=== PATIENT | male | born 1955 | race Hispanic/Latino ===

== ENCOUNTER → 2021-10-11 11:44 | Outpatient (CLI) | payer OTHER, MEDICAID, SELFPAY ==
--- NOTE | 2021-10-11 11:48 | DI.RAD.S_ITS ---
PROCEDURE: XR WRIST RT MIN 3V INDICATIONS: bilateral wrist pain TECHNIQUE: 3 views of the wrist were acquired. COMPARISON: None. FINDINGS: Bones: No acute fractures or dislocations. No suspicious bony lesions. Mild degenerative changes at the 1st carpometacarpal joint and triscaphe joint. Soft tissues: No suspicious soft tissue calcifications. IMPRESSION: No acute osseous abnormality. Mild osteoarthrosis. If the symptoms persist, consider cross sectional imaging such as MRI or CT for further assessment. Dictated by: Dontrell Varner M.D. on 10/11/2021 at 14:03 Approved by: Dontrell Varner M.D. on 10/11/2021 at 14:04
--- NOTE | 2021-10-11 11:48 | DI.RAD.S_ITS ---
PROCEDURE: XR WRIST LT MIN 3V INDICATIONS: bilateral wrist pain TECHNIQUE: 3 views of the wrist were acquired. COMPARISON: None. FINDINGS: Bones: No acute fractures or dislocations. No suspicious bony lesions. Minimal degenerative changes of the 1st carpometacarpal joint. Soft tissues: No suspicious soft tissue calcifications. IMPRESSION: No acute osseous abnormality. If the symptoms persist, consider cross sectional imaging such as MRI or CT for further assessment. Dictated by: Dontrell Varner M.D. on 10/11/2021 at 14:05 Approved by: Dontrell Varner M.D. on 10/11/2021 at 14:05
[2021-10-11 12:22] LABS: Add Manual Diff / Slide Review NO; Basophils Absolute Auto 0 /uL (0-100); Basophils Percent Auto 0.5 % (0-2); Eosinophils Absolute Auto 300 /uL (0-450); Eosinophils Percent Auto 3.2 % (2-4); Hematocrit 37.9 % (41-53); Hemoglobin 12.1 g/dL (13.5-17.5); Lymphocytes Absolute Auto 2400 /uL (1100-4500); Lymphocytes Percent Auto 26.1 % (25-40); Mean Corpuscular Volume 74.9 fL (80-100); Monocytes Absolute Auto 900 /uL (0-900); Monocytes Percent Auto 10.2 % (3-14); Neutrophils Absolute Auto 5500 /uL (1500-7000); Platelet Count 304 X10^3/uL (150-400); Red Blood Cell Count 5.05 X10^6/uL (4.5-5.9); Red Cell Distribution Width 16.6 % (11.6-14.8); White Blood Cell Count 9.1 X10^3/uL (4.5-11.0)
[2021-10-11 12:51] LABS: Alanine Aminotransferase 68 IU/L (<50); Albumin 4.5 g/dL (3.5-5.0); Albumin Globulin Ratio 1.1 (1.0-2.8); Alkaline Phosphatase 90 U/L (38-126); Aspartate Aminotransferase 56 IU/L (17-59); BUN Creatinine Ratio 14.3 (6-22); Bilirubin Total 0.4 mg/dL (0.2-1.3); Blood Urea Nitrogen 18 mg/dL (9-20); Carbon Dioxide 25 mmol/L (22-32); Chloride 105 mmol/L (98-107); Cholesterol 121 mg/dL (140-199); Estimated Glomerular Filt Rate 57.8 mL/min (>60); Globulin 4.2 g/dL (1.7-4.1); Glucose 114 mg/dL (80-110); HDL Cholesterol 21 mg/dL (40-60); HEMOLYSIS < 15 (0-50); LDL Cholesterol Calculated 70 mg/dL (<100); Potassium 4.6 mmol/L (3.4-5.1); Sodium 139 mmol/L (137-145); Total Protein 8.7 g/dL (6.3-8.2); Triglycerides 149 mg/dL (35-150)
[2021-10-11 13:18] LABS: TSH w/ Reflex to FT4 1.03 uIU/mL (0.47-4.68)
[2021-10-12 15:31] LABS: HEMOLYSIS < 15 (0-50); Iron 54 ug/dL (49-181)
[2021-10-12 15:41] LABS: Percent Iron Saturation 13 % (20-50); Total Iron Binding Capacity 423 ug/dL (261-462); Transferrin 312 mg/dL (206-381)
[2021-10-12 16:07] LABS: Ferritin 15 ng/mL (18-464)
== END ==
PROVIDERS: Family Provider Family Medicine; PCP Internal Medicine; Referring Provider Internal Medicine; Visit Provider Internal Medicine
DX: M25.532 Pain in left wrist; G89.29 Other chronic pain; I10 Essential (primary) hypertension; M19.031 Primary osteoarthritis, right wrist; M25.531 Pain in right wrist; D50.9 Iron deficiency anemia, unspecified
CPT/HCPCS: 36415; 73110; 80053; 80061; 82728; 83540; 83550; 84443; 85025

== ENCOUNTER 2021-10-21 12:19 | Emergency (ER) | payer OTHER, MEDICAID, SELFPAY ==
[2021-10-21] VITALS (15 sets, daily range): BP systolic 137–194; BP diastolic 83–102; PULSE 83–117; RESP 16–22; TEMP 36.6; O2SAT 97–100; BMI 35.1
--- NOTE | 2021-10-21 12:31 | DI.RAD.S_ITS ---
PROCEDURE: XR CHEST 1V INDICATIONS: Chest pain TECHNIQUE: One view of the chest was acquired. COMPARISON: None. FINDINGS: Surgical changes and devices: None. Lungs and pleura: Lungs are clear. No pleural effusions or pneumothorax. Mediastinum: Mediastinal contours appear normal. Heart size is normal. Bones and chest wall: No suspicious bony lesions. Overlying soft tissues appear unremarkable. IMPRESSION: No acute cardiopulmonary pathology. Dictated by: Jaswinder Lee M.D. on 10/21/2021 at 13:05 Approved by: Jaswinder Lee M.D. on 10/21/2021 at 13:07
[2021-10-21 12:46] LABS: Add Manual Diff / Slide Review NO; Basophils Absolute Auto 100 /uL (0-100); Basophils Percent Auto 0.5 % (0-2); Eosinophils Absolute Auto 400 /uL (0-450); Eosinophils Percent Auto 3.8 % (2-4); Hematocrit 36.7 % (41-53); Hemoglobin 11.9 g/dL (13.5-17.5); Lymphocytes Absolute Auto 3800 /uL (1100-4500); Lymphocytes Percent Auto 35.2 % (25-40); Mean Corpuscular HGB Conc 32.5 % (30-36); Mean Corpuscular Hemoglobin 24.5 PG (26-34); Mean Corpuscular Volume 75.2 fL (80-100); Monocytes Absolute Auto 1000 /uL (0-900); Monocytes Percent Auto 9.4 % (3-14); Neutrophils Absolute Auto 5600 /uL (1500-7000); Neutrophils Percent Auto 51.1 % (50-75); Platelet Count 302 X10^3/uL (150-400); Red Blood Cell Count 4.88 X10^6/uL (4.5-5.9); Red Cell Distribution Width 17.1 % (11.6-14.8); White Blood Cell Count 10.9 X10^3/uL (4.5-11.0)
[2021-10-21 12:56] LABS: Alanine Aminotransferase 39 IU/L (<50); Albumin 4.6 g/dL (3.5-5.0); Alkaline Phosphatase 92 U/L (38-126); Aspartate Aminotransferase 37 IU/L (17-59); BUN Creatinine Ratio 13.1 (6-22); Bilirubin Total 0.4 mg/dL (0.2-1.3); Blood Urea Nitrogen 14 mg/dL (9-20); Calcium 8.7 mg/dL (8.4-10.2); Carbon Dioxide 24 mmol/L (22-32); Chloride 104 mmol/L (98-107); Creatine Kinase 77 U/L (55-170); Estimated Glomerular Filt Rate > 60.0 mL/min (>60); Globulin 4.5 g/dL (1.7-4.1); Glucose 131 mg/dL (80-110); HEMOLYSIS < 15 (0-50); Lipase 81 U/L (23-300); Potassium 4.1 mmol/L (3.4-5.1); Sodium 140 mmol/L (137-145); Total Protein 9.1 g/dL (6.3-8.2)
[2021-10-21 13:07] LABS: Troponin I < 0.012 ng/mL (0.01-0.034)
[2021-10-21] MEDS: SODIUM CHLORIDE 0.9% 1,000 ML 1000 ML IV (13:28)
--- NOTE | 2021-10-21 13:31 | ED_ITS ---
HPI - Chest Pain <Miguel Meier PA-C - Last Filed: 10/21/21 20:35> General Chief Complaint: Chest Pain Stated Complaint: chest pain, shaking, 20mins Time Seen by Provider: 10/21/21 12:31 Source: patient Mode of arrival: Ambulatory Limitations: no limitations History of Present Illness HPI narrative: Patient is a 65-year-old male who presents to the emergency department today for evaluation chest pain and diaphoresis. Patient explains that it around 1200 today he began to experience midsternal and left-sided chest pain, dry mouth, diaphoresis, and ?shakes?. Of note, patient states that he was eating kathryn just prior to the onset of his pain. He claims that he is no longer in pain and denies any significant cardiac history. He denies fever, chills, cough, shortness of breath, nausea, vomiting, diarrhea, constipation, dysuria, hematuria, jaw pain, pain in the upper extremities, chest pain that radiates the back, or any other concerning symptoms. No further concerns were voiced at this time. Related Data Previous Rx's Medication Instructions Recorded losartan 100 mg tablet 100 mg PO DAILY #90 tab 10/11/21 Allergies Allergy/AdvReac Type Severity Reaction Status Date / Time No Known Drug Allergies Allergy Verified 10/11/21 09:56 Review of Systems <Miguel Meier PA-C - Last Filed: 10/21/21 20:35> Constitutional Constitutional: Denies chills, Denies fatigue, Denies fever(s), Denies frequent falls, Denies lethargy, Denies weakness and Reports other (Sweating, shaking) Eyes Eyes: Denies loss of vision ENT Ears, Nose, Mouth, and Throat: Denies change in voice, Denies dizziness, Reports dry mouth, Denies neck pain, Denies sore throat and Denies throat swelling Cardiovascular Cardiovascular: Reports chest pain, Denies irregular heart rhythm, Denies lightheadedness, Denies palpitations, Denies dyspnea, Denies dyspnea on exertion and Denies orthopnea Respiratory Respiratory: Denies cough, Denies dyspnea, Denies dyspnea on exertion and Denies wheezing Gastrointestinal Gastrointestinal: Denies abdominal pain, Denies change in bowel habits, Denies diarrhea, Denies nausea and Denies vomiting Genitourinary Genitourinary: Denies hematuria, Denies flank pain, Denies urinary incontinence and Denies urinary urgency Musculoskeletal Musculoskeletal: Denies back pain, Denies muscle weakness, Denies neck pain, Denies numbness and Denies tingling Integumentary/Breasts Skin/Breast: Denies pruritus, Denies erythema, Denies rash and Denies wounds Neurologic Neurologic: Denies behavioral changes, Denies confusion, Denies dizziness, Denies frequent falls, Denies loss of vision, Denies numbness, Denies tingling and Denies weakness Psychiatric Psychiatric: Denies behavioral changes and Denies confusion Endocrine Endocrine: Denies fatigue and Denies palpitations Allergic/Immunologic Allergic/Immunologic: Denies throat swelling and Denies wheezing Patient History <Miguel Meier PA-C - Last Filed: 10/21/21 20:35> Medical History Essential hypertension Surgical History Anesthesia S/P appy Family History Brother Throat cancer Mother Stroke Father Asthma Social History Smoking Status: Never smoker alcohol intake: never substance use type: does not use Smoking Status: Never smoker Substance Use Type: does not use Exam <Miguel Meier PA-C - Last Filed: 10/21/21 20:35> Narrative Exam Narrative: GENERAL: 65 year old patient appears stated age. Well-developed patient, in no acute distress. HEAD: Atraumatic. Normocephalic. EYES: Pupils equal round and reactive. Extraocular motions intact. No scleral icterus. No injection or drainage. ENT: Nose without bleeding, purulent drainage. Throat without erythema, tonsillar hypertrophy or exudate. Airway patent. NECK: Trachea midline. Non tender CARDIOVASCULAR: Tachycardic but regular rhythm without murmurs, gallops, or rubs. RESPIRATORY: Clear to auscultation. Breath sounds equal bilaterally. No wheezes, rales, or rhonchi. GASTROINTESTINAL: Abdomen soft, non-tender, nondistended. EXTREMITIES: No edema or joint tenderness. BACK: Nontender without deformity or crepitance. No flank tenderness. NEURO: AOx3. SKIN: No rash or erythema of visible areas Initial Vital Signs Initial Vital Signs: Vital Signs Temperature 98 F 10/21/21 12:23 Pulse Rate 115 H 10/21/21 12:23 Respiratory Rate 17 10/21/21 12:23 Blood Pressure 160/102 H 10/21/21 12:23 Pulse Oximetry 99 10/21/21 12:23 <Fara Sanches DO - Last Filed: 10/22/21 07:14> Initial Vital Signs Initial Vital Signs: Vital Signs Temperature 98 F 10/21/21 12:23 Pulse Rate 115 H 10/21/21 12:23 Respiratory Rate 17 10/21/21 12:23 Blood Pressure 160/102 H 10/21/21 12:23 Pulse Oximetry 99 10/21/21 12:23 Course <Miguel Meier PA-C - Last Filed: 10/21/21 20:35> Course Course Narrative: CBC, CMP, lipase, magnesium, troponin with repeat troponin, chest x-ray, EKG ordered. 1000 mL bolus of normal saline he administered. CTA of the chest obtained. Orders Ordered: Discontinued Medications Sodium Chloride (Normal Saline 0.9%) 1,000 mls @ 1,000 mls/hr IV BOLUS ONE Stop: 10/21/21 14:19 Last Infusion: 10/21/21 14:48 Dose: 0 mls/hr Documented by: Admin: 10/21/21 13:28 Dose: 1,000 mls/hr Documented by: KIM Vital Signs Vital signs: Vital Signs - 8 hr 10/21/21 13:00 10/21/21 13:30 10/21/21 14:00 Pulse Rate 113 H 97 H 94 H Respiratory Rate 21 16 22 Blood Pressure 169/93 H 164/83 H 179/97 H Pulse Oximetry 97 99 100 10/21/21 14:31 10/21/21 14:32 10/21/21 15:00 Pulse Rate 100 H 100 H 95 H Respiratory Rate 20 20 21 Blood Pressure 194/93 H Pulse Oximetry 99 99 97 10/21/21 15:01 10/21/21 15:47 10/21/21 16:03 Pulse Rate 96 H 94 H 99 H Respiratory Rate 22 18 19 Blood Pressure 166/94 H 137/85 173/83 H Pulse Oximetry 98 99 98 10/21/21 16:30 10/21/21 17:00 Pulse Rate 88 83 Respiratory Rate 16 16 Blood Pressure 162/89 H 160/90 H Pulse Oximetry 98 98 <Fara Sanches DO - Last Filed: 10/22/21 07:14> Orders Ordered: Discontinued Medications Sodium Chloride (Normal Saline 0.9%) 1,000 mls @ 1,000 mls/hr IV BOLUS ONE Stop: 10/21/21 14:19 Last Infusion: 10/21/21 14:48 Dose: 0 mls/hr Documented by: Admin: 10/21/21 13:28 Dose: 1,000 mls/hr Documented by: KIM Vital Signs Vital signs: Vital Signs - 8 hr 10/21/21 13:00 10/21/21 13:30 10/21/21 14:00 Pulse Rate 113 H 97 H 94 H Respiratory Rate 21 16 22 Blood Pressure 169/93 H 164/83 H 179/97 H Pulse Oximetry 97 99 100 10/21/21 14:31 10/21/21 14:32 10/21/21 15:00 Pulse Rate 100 H 100 H 95 H Respiratory Rate 20 20 21 Blood Pressure 194/93 H Pulse Oximetry 99 99 97 10/21/21 15:01 10/21/21 15:47 10/21/21 16:03 Pulse Rate 96 H 94 H 99 H Respiratory Rate 22 18 19 Blood Pressure 166/94 H 137/85 173/83 H Pulse Oximetry 98 99 98 10/21/21 16:30 10/21/21 17:00 Pulse Rate 88 83 Respiratory Rate 16 16 Blood Pressure 162/89 H 160/90 H Pulse Oximetry 98 98 MDM - Chest Pain <Miguel Meier PA-C - Last Filed: 10/21/21 20:35> Lab Data Result diagrams: 10/21/21 12:30 10/21/21 12:30 Labs: Lab Results 10/21/21 10/21/21 10/21/21 Range/Units 12:30 12:30 12:30 WBC 10.9 (4.5-11.0) X10^3/uL RBC 4.88 (4.5-5.9) X10^6/uL Hgb 11.9 L (13.5-17.5) g/dL Hct 36.7 L (41-53) % MCV 75.2 L (80-100) fL MCH 24.5 L (26-34) PG MCHC 32.5 (30-36) % RDW 17.1 H (11.6-14.8) % Plt Count 302 (150-400) X10^3/uL Neut % (Auto) 51.1 (50-75) % Lymph % (Auto) 35.2 (25-40) % [place] % (Auto) 9.4 (3-14) % Eos % (Auto) 3.8 (2-4) % Baso % (Auto) 0.5 (0-2) % Neut # (Auto) 5600 (2890-6270) /uL Lymph # (Auto) 3800 (1051-9873) /uL [place] # (Auto) 1000 H (0-900) /uL Eos # (Auto) 400 (0-450) /uL Baso # (Auto) 100 (0-100) /uL D-Dimer 311 H (<230) ng/mL Sodium 140 (137-145) mmol/L Potassium 4.1 (3.4-5.1) mmol/L Chloride 104 (98-107) mmol/L Carbon Dioxide 24 (22-32) mmol/L BUN 14 (9-20) mg/dL Creatinine 1.07 (0.66-1.25) mg/dL Estimated GFR > 60.0 (>60) mL/min BUN/Creatinine Ratio 13.1 (6-22) Glucose 131 H (80-110) mg/dL Calcium 8.7 (8.4-10.2) mg/dL Magnesium 2.0 (1.6-2.3) mg/dL Total Bilirubin 0.4 (0.2-1.3) mg/dL AST 37 (17-59) IU/L ALT 39 (<50) IU/L Alkaline Phosphatase 92 (38-126) U/L Total Creatine Kinase 77 (55-170) U/L CK-MB (CK-2) TNP CK-MB (CK-2) Rel Index TNP Troponin I < 0.012 (0.01-0.034) ng/mL Total Protein 9.1 H (6.3-8.2) g/dL Albumin 4.6 (3.5-5.0) g/dL Globulin 4.5 H (1.7-4.1) g/dL Albumin/Globulin Ratio 1.0 (1.0-2.8) Lipase 81 (23-300) U/L 10/21/21 Range/Units 14:18 WBC (4.5-11.0) X10^3/uL RBC (4.5-5.9) X10^6/uL Hgb (13.5-17.5) g/dL Hct (41-53) % MCV (80-100) fL MCH (26-34) PG MCHC (30-36) % RDW (11.6-14.8) % Plt Count (150-400) X10^3/uL Neut % (Auto) (50-75) % Lymph % (Auto) (25-40) % [place] % (Auto) (3-14) % Eos % (Auto) (2-4) % Baso % (Auto) (0-2) % Neut # (Auto) (4940-8244) /uL Lymph # (Auto) (6232-4522) /uL [place] # (Auto) (0-900) /uL Eos # (Auto) (0-450) /uL Baso # (Auto) (0-100) /uL D-Dimer (<230) ng/mL Sodium (137-145) mmol/L Potassium (3.4-5.1) mmol/L Chloride (98-107) mmol/L Carbon Dioxide (22-32) mmol/L BUN (9-20) mg/dL Creatinine (0.66-1.25) mg/dL Estimated GFR (>60) mL/min BUN/Creatinine Ratio (6-22) Glucose (80-110) mg/dL Calcium (8.4-10.2) mg/dL Magnesium (1.6-2.3) mg/dL Total Bilirubin (0.2-1.3) mg/dL AST (17-59) IU/L ALT (<50) IU/L Alkaline Phosphatase (38-126) U/L Total Creatine Kinase (55-170) U/L CK-MB (CK-2) CK-MB (CK-2) Rel Index Troponin I < 0.012 (0.01-0.034) ng/mL Total Protein (6.3-8.2) g/dL Albumin (3.5-5.0) g/dL Globulin (1.7-4.1) g/dL Albumin/Globulin Ratio (1.0-2.8) Lipase (23-300) U/L Urine Dip Bedside Urine Glucose Negative Bedside Urine Bilirubin - Negative Bedside Urine Ketone - Negative Urine Specific [place] 1.015 Bedside Urine Occult Blood - Negative Bedside Urine pH 6 Bedside Urine Protein - Negative Bedside Urine Urobilinogen - Negative Bedside Urine Nitrite - Negative Bedside Urine Leukocytes - Negative Esterase Imaging Data Chest x-ray: Radiologist's Impression: PROCEDURE:? XR CHEST 1V ? INDICATIONS:? Chest pain ? TECHNIQUE:? One view of the chest was acquired.? ? COMPARISON:? None. ? FINDINGS:? ? Surgical changes and devices:? None.? ? Lungs and pleura:? Lungs are clear.? No pleural effusions or pneumothorax.? ? Mediastinum:? Mediastinal contours appear normal.? Heart size is normal.? ? Bones and chest wall:? No suspicious bony lesions.? Overlying soft tissues appear unremarkable.? ? IMPRESSION:? No acute cardiopulmonary pathology. ? ? Dictated by: Jaswinder Lee M.D. on 10/21/2021 at 13:05 ? ? Approved by: Jaswinder Lee M.D. on 10/21/2021 at 13:07 ? CT scan - chest: Radiologist's Impression: PROCEDURE:? CT ANGIO CHEST PE PROTOCOL ? INDICATIONS:? Chest pain, tachycardia ? TECHNIQUE:? After the administration of intravenous contrast, 2 mm thick sections acquired from the pulmonary apices to the posterior costophrenic angles.? 3-dimensional maximum intensity projection (MIP) coronal and sagittal reformats were then acquired through the thorax.? For radiation dose reduction, the following was used:? automated exposure control, adjustment of mA and/or kV according to patient size.? ? COMPARISON:? None. ? FINDINGS:? Image quality:? Excellent.? ? Pulmonary arteries:? No central pulmonary artery filling defect identified.? Opacification of the pulmonary arterial tree is inadequate to assess for subsegmental or segmental pulmonary embolus. ? Lungs and pleura:? Lungs are clear.? No pleural effusions or pneumothorax.? Central and peripheral airways are patent.? ? Mediastinum:? Heart size is normal, without pericardial effusion.? No mediastinal or hilar adenopathy.? Thoracic aorta is normal in caliber and enhancement.? Esophagus is normal in caliber, without hiatal hernia.? ? Bones and chest wall:? No suspicious bony lesions.? Ribs and thoracic spine appear intact throughout.? No axillary or supraclavicular adenopathy.? ? Abdomen:? Visualized upper abdominal solid organs appear normal in the early arterial phase of enhancement.? ? IMPRESSION:? No acute finding in the chest.? Pulmonary embolism cannot be excluded due to poor contrast timing. ? ? Dictated by: Sawyer Navas M.D. on 10/21/2021 at 16:17 ? ? Approved by: Sawyer Navas M.D. on 10/21/2021 at 16:22 ? MDM Narrative Medical decision making narrative: Differential diagnosis to consider but not limited to acute coronary syndrome versus myocardial infarction versus pulmonary embolism versus atypical chest pain versus musculoskeletal chest pain versus gastroesophageal reflex. I discussed results of lab studies and imaging with the patient and informed him that no acute abnormality was identified. I did inform the patient that CTA of the chest did not definitively rule out a pulmonary embolism, however I did explain that his D-dimer was not significantly elevated making pulmonary embolism less likely. Additionally, I did discuss the fact that it is reassuring that his pain has subsided in the emergency department. Patient states that this time that he is comfortable being discharged home and is stable for discharge. He states he will return to the emergency department with any concerning symptoms. Strict return precautions were discussed with the patient prior to discharge. <Fara Sanches, DO - Last Filed: 10/22/21 07:14> Lab Data Labs: Lab Results 10/21/21 10/21/21 10/21/21 Range/Units 12:30 12:30 12:30 WBC 10.9 (4.5-11.0) X10^3/uL RBC 4.88 (4.5-5.9) X10^6/uL Hgb 11.9 L (13.5-17.5) g/dL Hct 36.7 L (41-53) % MCV 75.2 L (80-100) fL MCH 24.5 L (26-34) PG MCHC 32.5 (30-36) % RDW 17.1 H (11.6-14.8) % Plt Count 302 (150-400) X10^3/uL Neut % (Auto) 51.1 (50-75) % Lymph % (Auto) 35.2 (25-40) % [place] % (Auto) 9.4 (3-14) % Eos % (Auto) 3.8 (2-4) % Baso % (Auto) 0.5 (0-2) % Neut # (Auto) 5600 (8740-5507) /uL Lymph # (Auto) 3800 (2800-7736) /uL [place] # (Auto) 1000 H (0-900) /uL Eos # (Auto) 400 (0-450) /uL Baso # (Auto) 100 (0-100) /uL D-Dimer 311 H (<230) ng/mL Sodium 140 (137-145) mmol/L Potassium 4.1 (3.4-5.1) mmol/L Chloride 104 (98-107) mmol/L Carbon Dioxide 24 (22-32) mmol/L BUN 14 (9-20) mg/dL Creatinine 1.07 (0.66-1.25) mg/dL Estimated GFR > 60.0 (>60) mL/min BUN/Creatinine Ratio 13.1 (6-22) Glucose 131 H (80-110) mg/dL Calcium 8.7 (8.4-10.2) mg/dL Magnesium 2.0 (1.6-2.3) mg/dL Total Bilirubin 0.4 (0.2-1.3) mg/dL AST 37 (17-59) IU/L ALT 39 (<50) IU/L Alkaline Phosphatase 92 (38-126) U/L Total Creatine Kinase 77 (55-170) U/L CK-MB (CK-2) TNP CK-MB (CK-2) Rel Index TNP Troponin I < 0.012 (0.01-0.034) ng/mL Total Protein 9.1 H (6.3-8.2) g/dL Albumin 4.6 (3.5-5.0) g/dL Globulin 4.5 H (1.7-4.1) g/dL Albumin/Globulin Ratio 1.0 (1.0-2.8) Lipase 81 (23-300) U/L 10/21/21 Range/Units 14:18 WBC (4.5-11.0) X10^3/uL RBC (4.5-5.9) X10^6/uL Hgb (13.5-17.5) g/dL Hct (41-53) % MCV (80-100) fL MCH (26-34) PG MCHC (30-36) % RDW (11.6-14.8) % Plt Count (150-400) X10^3/uL Neut % (Auto) (50-75) % Lymph % (Auto) (25-40) % [place] % (Auto) (3-14) % Eos % (Auto) (2-4) % Baso % (Auto) (0-2) % Neut # (Auto) (2807-2967) /uL Lymph # (Auto) (2991-9402) /uL [place] # (Auto) (0-900) /uL Eos # (Auto) (0-450) /uL Baso # (Auto) (0-100) /uL D-Dimer (<230) ng/mL Sodium (137-145) mmol/L Potassium (3.4-5.1) mmol/L Chloride (98-107) mmol/L Carbon Dioxide (22-32) mmol/L BUN (9-20) mg/dL Creatinine (0.66-1.25) mg/dL Estimated GFR (>60) mL/min BUN/Creatinine Ratio (6-22) Glucose (80-110) mg/dL Calcium (8.4-10.2) mg/dL Magnesium (1.6-2.3) mg/dL Total Bilirubin (0.2-1.3) mg/dL AST (17-59) IU/L ALT (<50) IU/L Alkaline Phosphatase (38-126) U/L Total Creatine Kinase (55-170) U/L CK-MB (CK-2) CK-MB (CK-2) Rel Index Troponin I < 0.012 (0.01-0.034) ng/mL Total Protein (6.3-8.2) g/dL Albumin (3.5-5.0) g/dL Globulin (1.7-4.1) g/dL Albumin/Globulin Ratio (1.0-2.8) Lipase (23-300) U/L Urine Dip Bedside Urine Glucose Negative Bedside Urine Bilirubin - Negative Bedside Urine Ketone - Negative Urine Specific [place] 1.015 Bedside Urine Occult Blood - Negative Bedside Urine pH 6 Bedside Urine Protein - Negative Bedside Urine Urobilinogen - Negative Bedside Urine Nitrite - Negative Bedside Urine Leukocytes - Negative Esterase ECG Data Interpretation: zenaida normal sinus rhythm rate 119 p.r. interval 140 QRS [address] changes no T-wave inversions no prior Discharge Plan Departure Patient Disposition: Home Clinical Impression: Chest pain, Hypertension Instructions: DI for Chest Pain Activity Restrictions/Additional Instructions: *You have been diagnosed with chest pain, hypertension *What to do: *Please continue to take your regular medications as directed. [ ] New medication prescriptions sent to your pharmacy: [ ] [ ] New medication written as a paper prescription [X] No new medications given You were evaluated in the emergency department today for chest pain. Chest x- ray and CTA of the chest failed to show any acute abnormality. I recommend following up with the primary care provider within the next 2-3 days for further evaluation and management. Lab studies obtained in the emergency department today did not show signs of infection or any other concerning abnormality. Do not hesitate to return to the emergency department if you experience worsening chest pain, difficulty breathing, fever, loss of consciousness, or any other concerning symptoms. *Please follow up with your primary care provider in 2-3 days, call for an appointment. Let them know you were seen in the Emergency Department and that we ask that you be seen in follow up. We will electronically transmit a record of today's note if your PCP is in our system *If you do not have a primary care provider please contact the [facility] Resource line at [phone]. They will ask some questions about your medical history and help get you set up with a doctor in the community. *Return to Emergency Department if you should have any new, worsening or concerning symptoms, such as [fever greater than 101 F, shaking chills, worsening pain, persistent vomiting or other bothersome symptoms] Prescriptions: No Action losartan 100 mg tablet 100 mg PO DAILY Qty: 90 1RF Referrals: Yunior Carbajal MD [Primary Care Provider] - <Fara Sanches DO - Last Filed: 10/22/21 07:14> Cosign ED Attending Gopiature Attestation: I was immediately available in the department for consultation. Documentation has been reviewed. I agree with assessment and plan.
[2021-10-21 14:49] LABS: Troponin I < 0.012 ng/mL (0.01-0.034)
[2021-10-21 15:42] LABS: D Dimer 311 ng/mL (<230)
--- NOTE | 2021-10-21 15:49 | DI.CT.S_ITS ---
PROCEDURE: CT ANGIO CHEST PE PROTOCOL INDICATIONS: Chest pain, tachycardia TECHNIQUE: After the administration of intravenous contrast, 2 mm thick sections acquired from the pulmonary apices to the posterior costophrenic angles. 3-dimensional maximum intensity projection (MIP) coronal and sagittal reformats were then acquired through the thorax. For radiation dose reduction, the following was used: automated exposure control, adjustment of mA and/or kV according to patient size. COMPARISON: None. FINDINGS: Image quality: Excellent. Pulmonary arteries: No central pulmonary artery filling defect identified. Opacification of the pulmonary arterial tree is inadequate to assess for subsegmental or segmental pulmonary embolus. Lungs and pleura: Lungs are clear. No pleural effusions or pneumothorax. Central and peripheral airways are patent. Mediastinum: Heart size is normal, without pericardial effusion. No mediastinal or hilar adenopathy. Thoracic aorta is normal in caliber and enhancement. Esophagus is normal in caliber, without hiatal hernia. Bones and chest wall: No suspicious bony lesions. Ribs and thoracic spine appear intact throughout. No axillary or supraclavicular adenopathy. Abdomen: Visualized upper abdominal solid organs appear normal in the early arterial phase of enhancement. IMPRESSION: No acute finding in the chest. Pulmonary embolism cannot be excluded due to poor contrast timing. Dictated by: Sawyer Navas M.D. on 10/21/2021 at 16:17 Approved by: Sawyer Navas M.D. on 10/21/2021 at 16:22
== END 2021-10-21 17:09 | disposition home or self-care (01) ==
PROVIDERS: Emergency Provider Physician Assistant; Family Provider Family Medicine; PCP Internal Medicine
DX: R07.9 Chest pain, unspecified (principal); I10 Essential (primary) hypertension
CPT/HCPCS: 36415; 71045; 71275; 80053; 81003; 82550; 83690; 83735; 84484; 85025; 85379; 93005; 93010; 96360; 99284; Q9967

== ENCOUNTER → 2022-01-06 08:15 | Outpatient (CLI) | payer OTHER, MEDICAID, SELFPAY ==
[2022-01-06 09:13] LABS: Hematocrit 37.9 % (41-53); Hemoglobin 12.2 g/dL (13.5-17.5); Mean Corpuscular HGB Conc 32.1 % (30-36); Mean Corpuscular Hemoglobin 24.6 PG (26-34); Mean Corpuscular Volume 76.7 fL (80-100); Platelet Count 323 X10^3/uL (150-400); Red Blood Cell Count 4.94 X10^6/uL (4.5-5.9); Red Cell Distribution Width 16.3 % (11.6-14.8); White Blood Cell Count 7.7 X10^3/uL (4.5-11.0)
[2022-01-06 09:37] LABS: HEMOLYSIS < 15 (0-50); Iron 51 ug/dL (49-181)
[2022-01-06 09:50] LABS: Percent Iron Saturation 12 % (20-50); Total Iron Binding Capacity 421 ug/dL (261-462); Transferrin 316 mg/dL (206-381)
[2022-01-06 21:27] LABS: Ferritin 9 ng/mL (18-464)
== END ==
PROVIDERS: Family Provider Family Medicine; PCP Internal Medicine; Referring Provider Internal Medicine; Visit Provider Internal Medicine
DX: D50.9 Iron deficiency anemia, unspecified (principal); K62.5 Hemorrhage of anus and rectum
CPT/HCPCS: 36415; 82728; 83540; 83550; 85027

== ENCOUNTER → 2022-01-31 09:57 | Outpatient (CLI) | payer OTHER, MEDICAID, SELFPAY ==
[2022-01-31 11:02] LABS: COVID19 -Nasal RAPID Negative (Negative)
== END ==
PROVIDERS: Family Provider Family Medicine; PCP Internal Medicine; Visit Provider Surgery
DX: Z01.812 Encounter for preprocedural laboratory examination (principal); Z20.822 Contact with and (suspected) exposure to COVID-19
CPT/HCPCS: 87635; C9803

== ENCOUNTER 2022-02-01 11:07 | Day surgery (SDC) | payer OTHER, MEDICAID, SELFPAY ==
--- NOTE | 2022-02-01 | PATH_ITS ---
[facility] Accession Number: [id number] . 01 Material submitted: . sigmoid colon - SIGMOID . 01 Clinical history: . SDC ANEMIA, UNSPECIFIED HEMORRHAGE OF ANUS AND RECTUM . 01 Diagnosis: Sigmoid Colon Polyp, Biopsy: Tubulovillous adenoma. No high-grade dysplasia or malignancy. MRV 02/03/2022 1026 Local . 01 Electronically signed: . Julianna Valentine MD, Pathologist NPI- [id number] . 01 Gross description: . SIGMOID: Received in formalin is 1 fragment(s) of murphy, soft tissue measuring 0.8 x 0.5 x 0.4 cm submitted entirely in 1 cassette(s) /CPE 02/02/2022 0825 Local . 01 Pathologist provided ICD-10: D12.6 . 01 CPT . 834631 Specimen Comment: A courtesy copy of this report has been sent to [phone] Performed at: 01 [facility] [address] [place] [address], [place], [place] [id number] MD Janes Araya MD Phone: [phone]
[2022-02-01 11:32] VITALS: BP 152/90; PULSE 97; RESP 17; TEMP 36.4; O2SAT 99; BMI 33.3
[2022-02-01] MEDS: LACTATED RINGERS 1,000 ML 200 ML IV (11:48)
--- NOTE | 2022-02-01 12:33 | P.HP_ITS ---
History of Present Illness History of Present Illness Date Patient Seen: 02/01/22 Time Patient Seen: 12:33 Chief complaint: SDC Narrative: 66-year-old man seen previously for rectal bleeding several months ago. He has had no further bleeding. No abdominal pain nausea vomiting unintentional weight loss. He is here for diagnostic colonoscopy. Patient History Medical History Essential hypertension Essential hypertension GERD with esophagitis Microcytic anemia Surgical History Anesthesia S/P appy Family & Social History Family History Brother Throat cancer Mother Stroke Father Asthma Social History: household members spouse Tobacco & Substance use: Smoking Status Never smoker alcohol intake former Substance Use Type does not use Meds Home Medications and Allergies Home Medications Medication Instructions Recorded Confirmed Type omeprazole 20 mg capsule,delayed 20 mg PO DAILY #90 caps 10/25/21 02/01/22 Rx release amlodipine 5 mg tablet 5 mg PO DAILY #90 tabs 01/05/22 02/01/22 Rx losartan 100 mg tablet 100 mg PO DAILY #90 tabs 01/05/22 02/01/22 Rx ibuprofen 800 mg tablet 800 mg PRN Pain 02/01/22 History Allergies Allergy/AdvReac Type Severity Reaction Status Date / Time No Known Drug Allergies Allergy Verified 02/01/22 11:28 Exam Vital Signs (past 8 hours): - 02/01/22 11:32 Temperature 97.6 F Pulse Rate 97 H Respiratory Rate 17 Blood Pressure 152/90 H Pulse Oximetry 99 Oxygen Delivery Method Room Air Oxygen Delivery Method Room Air Narrative Exam Narrative: General adult male alert oriented no acute distress Chest nonlabored respiration Abdomen soft nontender nondistended Assessment & Plan Assessment and plan (1) Microcytic anemia: Status: Acute Assessment & Plan narrative: 66-year-old man with resolved rectal bleeding and microcytic anemia here for margie gnostic colonoscopy. I recommended that he have both upper and lower endoscopy however his preference is proceed with lower only at this time. Overview of the procedure was discussed with the patient. Refer procedural risks including bleeding, missed diagnosis, intestinal perforation were discussed. Questions have been answered and he is in agreement with this plan. Time Spent With Patient Critical Care time: I spent a total of [] minutes of critical care time on this patient's care today; this time is exclusive of procedural time.
--- NOTE | 2022-02-01 13:08 | P.OP.COLON_ITS ---
Operative Date/Time/Diagnoses Date of procedure: 02/01/22 Time of procedure: 13:08 Pre-op diagnosis: Microcytic anemia Post-op diagnosis: same Procedure & Clinicians Study performed: Colonoscopy and polypectomy Same procedure as scheduled: Yes Indications: Microcytic anemia Surgeon: Lam Lambert Procedure Notes Procedure in detail: Medications: Conscious sedation using 5 mg IV midazolam and 150 mcg IV of fentanyl The history and physical was performed/updated and the patient is ASA class is 2. The procedure was discussed in detail with the patient. Potential risks complications including infection, bleeding, missed diagnosis, perforation, need for surgery, and were explained. Their questions were answered and informed consent was obtained. Patient was brought to the procedure room and placed standard monitoring equipm ent. The patient's vital signs were monitored continuously throughout the entire procedure. Prior to starting time-out was performed. The patient was placed in the left lateral recumbent position. Procedural sedation was administered. Examination began with a thorough inspection of the perianal area there was no evidence of fissures, fistulae, external hemorrhoids or cutaneous malignancy. The colonoscopy scope was then placed into the anal canal and was advanced to the cecum, which was identified by the ileocecal valve, the appendiceal orifice and the confluence of the taenia. The scope was then slowly withdrawn examining colon thoroughly in all directions, irrigating it of any residual stool. FINDINGS 1. Sigmoid colon-1 cm polyp removed with cold snare 2. Diverticulosis The patient tolerated the procedure well. They will be discharged once criteria are met. The prep was of fair quality. The withdrawl time was 9minutes. The sedation time was 20 minutes. Specimen(s): other (Sigmoid colon polyp) Complications: none Impression: Colonic polyp Post-procedure Recommendations: Colonoscopy in 5 years and High fiber diet Disposition: same day surgery
[2022-02-01] MEDS: fentaNYL 250 MCG/5 ML INJ 150 MCG IV (13:10)
[2022-02-01] MEDS: MIDAZOLAM 5 MG/5 ML VIAL IV (13:10)
[2022-02-01 13:14] VITALS: BP 120/84; PULSE 91; RESP 15; TEMP 36.4; O2SAT 94
[2022-02-01 13:17] VITALS: BP 116/74; PULSE 86; RESP 15; O2SAT 98
[2022-02-01 13:24] VITALS: BP 116/83; PULSE 92; RESP 17; O2SAT 97
== END 2022-02-01 13:33 | disposition home or self-care (01) ==
PROVIDERS: Family Provider Family Medicine; PCP Internal Medicine; Referring Provider Surgery; Visit Provider Surgery
PROC: 0DJD8ZZ Inspection of Lower Intestinal Tract, Via Natural or Artificial Opening Endoscopic (ICD-10-PCS; CPT 45378; principal; 2022-02-01 12:15)
DX: D12.5 Benign neoplasm of sigmoid colon (principal); K57.30 Diverticulosis of large intestine without perforation or abscess without bleeding; D50.9 Iron deficiency anemia, unspecified; K62.5 Hemorrhage of anus and rectum; K21.00 Gastro-esophageal reflux disease with esophagitis, without bleeding; I10 Essential (primary) hypertension
CPT/HCPCS: 45385; 99152; J2250; J3010

== ENCOUNTER → 2022-04-22 15:20 | Outpatient (CLI) | payer OTHER, MEDICAID, SELFPAY ==
[2022-04-22 15:58] LABS: Hemoglobin 12.3 g/dL (13.5-17.5); Mean Corpuscular HGB Conc 32.4 % (30-36); Mean Corpuscular Hemoglobin 26.3 PG (26-34); Platelet Count 307 X10^3/uL (150-400); Red Blood Cell Count 4.69 X10^6/uL (4.5-5.9); Red Cell Distribution Width 15.6 % (11.6-14.8); White Blood Cell Count 11.6 X10^3/uL (4.5-11.0)
[2022-04-22 16:13] LABS: HEMOLYSIS < 15 (0-50); Iron 45 ug/dL (49-181)
[2022-04-22 16:17] LABS: Alanine Aminotransferase 30 IU/L (<50); Albumin 4.4 g/dL (3.5-5.0); Alkaline Phosphatase 91 U/L (38-126); Aspartate Aminotransferase 28 IU/L (17-59); BUN Creatinine Ratio 21.4 (6-22); Bilirubin Total 0.2 mg/dL (0.2-1.3); Blood Urea Nitrogen 21 mg/dL (9-20); C-Reactive Protein Quant 1.2 mg/dL (<1.0); Calcium 8.9 mg/dL (8.4-10.2); Carbon Dioxide 25 mmol/L (22-32); Chloride 104 mmol/L (98-107); Estimated Glomerular Filt Rate > 60 mL/min (>60); Globulin 4.2 g/dL (1.7-4.1); Glucose 138 mg/dL (80-110); HEMOLYSIS < 15 (0-50); Potassium 4.2 mmol/L (3.4-5.1); Sodium 144 mmol/L (137-145); Total Protein 8.6 g/dL (6.3-8.2)
[2022-04-22 16:24] LABS: Percent Iron Saturation 11 % (20-50); Total Iron Binding Capacity 407 ug/dL (261-462); Transferrin 278 mg/dL (206-381)
[2022-04-22 16:28] LABS: Erythrocyte Sedimentation Rate 26 MM/HR (0-15)
[2022-04-22 16:49] LABS: Ferritin 15 ng/mL (18-464)
[2022-04-25 20:36] LABS: CCP Antibodies IgG/IgA >250 units (0-19)
== END ==
PROVIDERS: Family Provider Family Medicine; PCP Internal Medicine; Referring Provider Internal Medicine; Visit Provider Internal Medicine
DX: M13.0 Polyarthritis, unspecified (principal); D50.9 Iron deficiency anemia, unspecified; K21.01 Gastro-esophageal reflux disease with esophagitis, with bleeding
CPT/HCPCS: 36415; 80053; 82728; 83540; 83550; 85027; 85651; 86140; 86200

== ENCOUNTER → 2022-07-29 16:32 | Outpatient (CLI) | payer OTHER, MEDICAID, SELFPAY ==
[2022-07-29 17:19] LABS: Hematocrit 38.8 % (41-53); Hemoglobin 12.9 g/dL (13.5-17.5); Mean Corpuscular HGB Conc 33.3 % (30-36); Mean Corpuscular Hemoglobin 27.2 PG (26-34); Mean Corpuscular Volume 81.9 fL (80-100); Platelet Count 270 X10^3/uL (150-400); Red Blood Cell Count 4.74 X10^6/uL (4.5-5.9); Red Cell Distribution Width 15.3 % (11.6-14.8); White Blood Cell Count 11.2 X10^3/uL (4.5-11.0)
[2022-07-29 17:40] LABS: HEMOLYSIS < 15 (0-50); Iron 56 ug/dL (49-181)
[2022-07-29 17:53] LABS: Percent Iron Saturation 16 % (20-50); Total Iron Binding Capacity 361 ug/dL (261-462); Transferrin 272 mg/dL (206-381)
[2022-07-29 18:16] LABS: Prostate Specific Antigen Scrn 1.84 ng/mL (0.1-4.0)
[2022-07-29 18:20] LABS: Ferritin 21 ng/mL (18-464)
== END ==
PROVIDERS: Family Provider Family Medicine; PCP Internal Medicine; Referring Provider Internal Medicine; Visit Provider Internal Medicine
DX: D50.9 Iron deficiency anemia, unspecified (principal); Z12.5 Encounter for screening for malignant neoplasm of prostate
CPT/HCPCS: 36415; 82728; 83540; 83550; 85027; G0103

== ENCOUNTER → 2022-10-28 07:58 | Outpatient (CLI) | payer OTHER, MEDICAID, SELFPAY ==
[2022-10-28 09:25] LABS: Hematocrit 39.8 % (41-53); Hemoglobin 13.3 g/dL (13.5-17.5); Mean Corpuscular HGB Conc 33.5 % (30-36); Mean Corpuscular Volume 83.6 fL (80-100); Platelet Count 314 X10^3/uL (150-400); Red Blood Cell Count 4.76 X10^6/uL (4.5-5.9); Red Cell Distribution Width 13.9 % (11.6-14.8); White Blood Cell Count 9.4 X10^3/uL (4.5-11.0)
[2022-10-28 09:46] LABS: Aspartate Aminotransferase 23 IU/L (17-59); BUN Creatinine Ratio 18.1 (6-22); Blood Urea Nitrogen 17 mg/dL (9-20); Calcium 9.4 mg/dL (8.4-10.2); Carbon Dioxide 27 mmol/L (22-32); Chloride 103 mmol/L (98-107); Cholesterol 76 mg/dL (140-199); Estimated Glomerular Filt Rate > 60 mL/min (>60); Glucose 107 mg/dL (80-110); HDL Cholesterol 26 mg/dL (40-60); HEMOLYSIS < 15 (0-50); LDL Cholesterol Calculated 30 mg/dL (<100); Potassium 4.7 mmol/L (3.4-5.1); Sodium 141 mmol/L (137-145); Triglycerides 98 mg/dL (35-150)
== END ==
PROVIDERS: Family Provider Family Medicine; PCP Internal Medicine; Referring Provider Internal Medicine; Visit Provider Internal Medicine
DX: D50.9 Iron deficiency anemia, unspecified (principal); E78.5 Hyperlipidemia, unspecified; I10 Essential (primary) hypertension
CPT/HCPCS: 36415; 80048; 80061; 84450; 85027

== ENCOUNTER → 2023-07-13 11:33 | Outpatient (CLI) | payer OTHER, SELFPAY ==
[2023-07-13 12:57] LABS: Hematocrit 36.5 % (41-53); Mean Corpuscular HGB Conc 32.9 % (30-36); Mean Corpuscular Hemoglobin 27.3 PG (26-34); Mean Corpuscular Volume 82.9 fL (80-100); Platelet Count 328 X10^3/uL (150-400); Red Cell Distribution Width 13.5 % (11.6-14.8)
[2023-07-13 13:24] LABS: Alanine Aminotransferase 24 IU/L (<50); Albumin 4.6 g/dL (3.5-5.0); Albumin Globulin Ratio 1.1 (1.0-2.8); Alkaline Phosphatase 82 U/L (38-126); Aspartate Aminotransferase 26 IU/L (17-59); BUN Creatinine Ratio 18.7 (6-22); Bilirubin Total 0.5 mg/dL (0.2-1.3); Blood Urea Nitrogen 17 mg/dL (9-20); Calcium 9.1 mg/dL (8.4-10.2); Carbon Dioxide 23 mmol/L (22-32); Chloride 106 mmol/L (98-107); Estimated Glomerular Filt Rate > 60 mL/min (>60); Globulin 4.2 g/dL (1.7-4.1); Glucose 119 mg/dL (80-110); HEMOLYSIS 20 (0-50); Potassium 4.3 mmol/L (3.4-5.1); Sodium 140 mmol/L (137-145); Total Protein 8.8 g/dL (6.3-8.2)
[2023-07-13 13:39] LABS: Erythrocyte Sedimentation Rate 37 MM/HR (0-15)
[2023-07-13 13:40] LABS: TSH w/ Reflex to FT4 1.44 uIU/mL (0.47-4.68)
== END ==
PROVIDERS: Family Provider Family Medicine; PCP Internal Medicine; Referring Provider Internal Medicine; Visit Provider Internal Medicine
DX: M06.9 Rheumatoid arthritis, unspecified (principal); D50.9 Iron deficiency anemia, unspecified; I10 Essential (primary) hypertension
CPT/HCPCS: 36415; 80053; 84443; 85027; 85651; 86140

== ENCOUNTER → 2023-12-20 16:01 | Outpatient (CLI) | payer OTHER, SELFPAY ==
[2023-12-20 17:27] LABS: Hematocrit 36.7 % (41-53); Hemoglobin 11.8 g/dL (13.5-17.5); Mean Corpuscular HGB Conc 32.2 % (30-36); Mean Corpuscular Hemoglobin 25.3 PG (26-34); Mean Corpuscular Volume 78.6 fL (80-100); Platelet Count 276 X10^3/uL (150-400); Red Blood Cell Count 4.67 X10^6/uL (4.5-5.9); Red Cell Distribution Width 16.4 % (11.6-14.8); White Blood Cell Count 13.5 X10^3/uL (4.5-11.0)
[2023-12-20 18:02] LABS: Alanine Aminotransferase 16 IU/L (<50); Albumin 4.3 g/dL (3.5-5.0); Albumin Globulin Ratio 1.3 (1.0-2.8); Alkaline Phosphatase 86 U/L (38-126); Aspartate Aminotransferase 20 IU/L (17-59); BUN Creatinine Ratio 19.8 (6-22); Bilirubin Total 0.4 mg/dL (0.2-1.3); Blood Urea Nitrogen 18 mg/dL (9-20); C-Reactive Protein Quant < 0.5 mg/dL (<1.0); Calcium 8.8 mg/dL (8.4-10.2); Carbon Dioxide 23 mmol/L (22-32); Chloride 110 mmol/L (98-107); Cholesterol 84 mg/dL (140-199); Estimated Glomerular Filt Rate > 60 mL/min (>60); Globulin 3.4 g/dL (1.7-4.1); Glucose 141 mg/dL (80-110); HDL Cholesterol 26 mg/dL (40-60); HEMOLYSIS < 15 (0-50); LDL Cholesterol Calculated 31 mg/dL (<100); Potassium 4.1 mmol/L (3.4-5.1); Sodium 141 mmol/L (137-145); Total Protein 7.7 g/dL (6.3-8.2); Triglycerides 133 mg/dL (35-150)
[2023-12-20 18:27] LABS: Prostate Specific Antigen 1.94 ng/mL (0.10-4.00); TSH w/ Reflex to FT4 1.21 uIU/mL (0.47-4.68)
[2023-12-20 18:45] LABS: Erythrocyte Sedimentation Rate 25 MM/HR (0-15)
== END ==
PROVIDERS: Family Provider Family Medicine; PCP Internal Medicine; Referring Provider Internal Medicine; Visit Provider Internal Medicine
DX: M06.9 Rheumatoid arthritis, unspecified (principal); N40.1 Benign prostatic hyperplasia with lower urinary tract symptoms; N13.8 Other obstructive and reflux uropathy; E78.2 Mixed hyperlipidemia; E78.5 Hyperlipidemia, unspecified
CPT/HCPCS: 36415; 80053; 80061; 84153; 84443; 85027; 85651; 86140

== ENCOUNTER → 2024-08-08 12:42 | Outpatient (CLI) | payer OTHER, SELFPAY ==
[2024-08-08 13:27] LABS: Add Manual Diff / Slide Review NO; Basophils Absolute Auto 100 /uL (0-100); Basophils Percent Auto 0.4 % (0-2); Eosinophils Absolute Auto 400 /uL (0-450); Eosinophils Percent Auto 3.2 % (2-4); Hematocrit 36.5 % (41-53); Hemoglobin 11.7 g/dL (13.5-17.5); Lymphocytes Absolute Auto 3300 /uL (1100-4500); Lymphocytes Percent Auto 26.9 % (25-40); Mean Corpuscular Hemoglobin 25.7 PG (26-34); Mean Corpuscular Volume 80.2 fL (80-100); Monocytes Absolute Auto 1100 /uL (0-900); Monocytes Percent Auto 8.7 % (3-14); Neutrophils Absolute Auto 7400 /uL (1500-7000); Neutrophils Percent Auto 60.8 % (50-75); Platelet Count 400 X10^3/uL (150-400); Red Blood Cell Count 4.55 X10^6/uL (4.5-5.9); Red Cell Distribution Width 14.9 % (11.6-14.8); White Blood Cell Count 12.2 X10^3/uL (4.5-11.0)
[2024-08-08 13:53] LABS: HEMOLYSIS < 15 (0-50); Iron 20 ug/dL (49-181)
[2024-08-08 14:03] LABS: Percent Iron Saturation 5 % (20-50); Total Iron Binding Capacity 391 ug/dL (261-462); Transferrin 350 mg/dL (206-381)
[2024-08-08 14:25] LABS: Ferritin 8 ng/mL (18-464)
== END ==
PROVIDERS: Family Provider Family Medicine; PCP Internal Medicine; Referring Provider Physician Assistant; Visit Provider Physician Assistant
DX: R42 Dizziness and giddiness (principal); D50.9 Iron deficiency anemia, unspecified; M06.9 Rheumatoid arthritis, unspecified
CPT/HCPCS: 36415; 82728; 83540; 83550; 85025

== ENCOUNTER → 2024-08-23 14:02 | Outpatient (CLI) | payer OTHER, SELFPAY ==
[2024-08-23 15:59] LABS: Influenza A - CEPHEID Flu A NEGATIVE (NEGATIVE); Influenza B - CEPHEID Flu B NEGATIVE (NEGATIVE); Respiratory Syncytial Virus Negative (Negative)
[2024-08-23 16:01] LABS: COVID-19 CEPHEID 4-PLEX PCR Negative (Negative)
== END ==
PROVIDERS: Family Provider Family Medicine; PCP Family Medicine; Visit Provider Family Medicine
DX: R50.9 Fever, unspecified (principal); R51.9 Headache, unspecified; J11.1 Influenza due to unidentified influenza virus with other respiratory manifestations; K21.00 Gastro-esophageal reflux disease with esophagitis, without bleeding; I10 Essential (primary) hypertension; D50.9 Iron deficiency anemia, unspecified; K57.30 Diverticulosis of large intestine without perforation or abscess without bleeding; E11.9 Type 2 diabetes mellitus without complications
CPT/HCPCS: 0241U

== ENCOUNTER → 2024-12-26 08:45 | Outpatient (CLI) | payer MEDICARE, SELFPAY ==
[2024-12-26 10:03] LABS: Hematocrit 38.6 % (41-53); Hemoglobin 12.7 g/dL (13.5-17.5); Mean Corpuscular Hemoglobin 27.8 PG (26-34); Mean Corpuscular Volume 84.3 fL (80-100); Platelet Count 297 X10^3/uL (150-400); Red Blood Cell Count 4.58 X10^6/uL (4.5-5.9); Red Cell Distribution Width 14.6 % (11.6-14.8)
[2024-12-26 10:18] LABS: Neutrophils Absolute Manual 6390 /uL (3000-5900); RBC Morphology Normal Morphology; Total Cells Counted 100
[2024-12-26 10:44] LABS: HEMOLYSIS < 15 (0-50); Iron 59 ug/dL (49-181)
[2024-12-26 10:50] LABS: NT-proBNP (BNP-Adult 18+) < 20 pg/mL (<125)
[2024-12-26 10:55] LABS: Percent Iron Saturation 17 % (20-50); Total Iron Binding Capacity 355 ug/dL (261-462); Transferrin 285 mg/dL (206-381)
[2024-12-26 11:14] LABS: TSH w/ Reflex to FT4 1.91 uIU/mL (0.47-4.68)
[2024-12-26 11:39] LABS: Ferritin 23 ng/mL (18-464)
== END ==
PROVIDERS: PCP Family Medicine; Referring Provider Family Medicine; Visit Provider Family Medicine
DX: K21.00 Gastro-esophageal reflux disease with esophagitis, without bleeding (principal); D50.9 Iron deficiency anemia, unspecified; I10 Essential (primary) hypertension; K57.30 Diverticulosis of large intestine without perforation or abscess without bleeding; E11.9 Type 2 diabetes mellitus without complications; M79.89 Other specified soft tissue disorders
CPT/HCPCS: 36415; 82728; 83540; 83550; 83880; 84443; 85025; 86140

== ENCOUNTER → 2025-05-03 08:25 | Outpatient (CLI) | payer MEDICARE, SELFPAY ==
[2025-05-03 09:39] LABS: Add Manual Diff / Slide Review NO; Hematocrit 40.5 % (41-53); Hemoglobin 13.5 g/dL (13.5-17.5); Lymphocytes Absolute Auto 2100 /uL (1100-4500); Mean Corpuscular HGB Conc 33.3 % (30-36); Mean Corpuscular Hemoglobin 27.6 PG (26-34); Mean Corpuscular Volume 82.8 fL (80-100); Platelet Count 289 X10^3/uL (150-400)
[2025-05-03 09:43] LABS: Hemoglobin A1C% w Est Avg Glu 6.9 % (4.0-6.0)
[2025-05-03 09:54] LABS: Alanine Aminotransferase 43 IU/L (<50); Albumin 4.3 g/dL (3.5-5.0); Albumin Globulin Ratio 1.1 (1.0-2.8); Alkaline Phosphatase 87 U/L (38-126); Blood Urea Nitrogen 14 mg/dL (9-20); Calcium 9.0 mg/dL (8.4-10.2); Carbon Dioxide 27 mmol/L (22-32); Chloride 104 mmol/L (98-107); Cholesterol 78 mg/dL (140-199); Estimated Glomerular Filt Rate > 60 mL/min (>60); Globulin 3.8 g/dL (1.7-4.1); Glucose 134 mg/dL (70-99); HDL Cholesterol 23 mg/dL (40-60); HEMOLYSIS < 15 (0-50); Potassium 4.2 mmol/L (3.4-5.1); Sodium 138 mmol/L (137-145); Total Protein 8.1 g/dL (6.3-8.2); Triglycerides 131 mg/dL (35-150)
== END ==
PROVIDERS: PCP Family Medicine; Referring Provider Family Medicine; Visit Provider Family Medicine
DX: Z00.00 Encounter for general adult medical examination without abnormal findings (principal); E61.1 Iron deficiency; E11.9 Type 2 diabetes mellitus without complications; E78.2 Mixed hyperlipidemia
CPT/HCPCS: 36415; 80053; 80061; 83036; 85025

== ENCOUNTER → 2025-05-05 09:20 | Outpatient (CLI) | payer MEDICARE, SELFPAY | PROVIDERS: PCP Family Medicine; Referring Provider Family Medicine; Visit Provider Family Medicine | DX: Z12.11 Encounter for screening for malignant neoplasm of colon (principal); K21.00 Gastro-esophageal reflux disease with esophagitis, without bleeding; I10 Essential (primary) hypertension; D50.9 Iron deficiency anemia, unspecified; K57.30 Diverticulosis of large intestine without perforation or abscess without bleeding; E11.9 Type 2 diabetes mellitus without complications | CPT/HCPCS: 82274 ==